=== PATIENT | female | born 1960 | race Caucasian/White ===

== ENCOUNTER → 2017-04-22 | Outpatient (CLI) | payer OTHER | END | disposition home or self-care (01) | LOC: RAD.S 10:50 | DX: Z12.31 Encounter for screening mammogram for malignant neoplasm of breast (principal) ==

== ENCOUNTER 2017-05-13 00:53 | Emergency (ER) | payer OTHER ==
--- NOTE | 2017-05-13 19:09 | ER ---
ADMIT: 05/13/2017 RM/LOC: ER [facility] MR#: [id number] [place], [place] [id number] ALEXANDRA ENCINAS [address] [place] [address] Emergency Room Report SEX: F AGE: 57 : 1960 DATE: 05/13/2017 HISTORY OF PRESENT ILLNESS: The patient is a 57-year-old female with past medical history of hypertension and diabetes, came to the ER with chief complaint of anterior mid chest pain since 2 p.m., the patient states the pain is more like aching and states that recently she had lots of stress in her life. The patient denies any change in the pain with inspiration. There is no radiation of the pain, and the patient denied diaphoresis. Pain was moderate in severity and at the moment is mild. The patient denies any shortness of breath and states recently she has been diagnosed for some pulmonary infection and received treatment for that. The patient denies any fever at home or colorful sputum. PHYSICAL EXAMINATION: VITAL SIGNS: In the ER, the patient was afebrile with temperature of 98, respiratory rate was 16, heart rate was 64, blood pressure is 150/80. GENERAL: The patient was in mild distress and was anxious. HEAD AND NECK: Normal without any bruits on the neck. Trachea is midline. Bilateral equal breath sounds without any crackles. HEART: Normal heart sounds without any murmurs or gallops. ABDOMEN: Soft, nontender, without any pulsating masses. EXTREMITIES: There is no swelling or tenderness in the extremities. Rest of physical examination is noncontributory and normal. EKG was normal sinus rhythm with a rate of 69. Troponin I was negative, and D- dimer was also 0.28. The patient received aspirin in the ER. Followup chest x-ray was negative for any acute changes. The rest of the lab was also noncontributory and negative. The patient was observed, pain was resolved. The patient did not develop any new chest pains or distress. The patient was discharged to home with diagnosis of chest pain, resolved and follow up with the primary doctor, the patient was given return precautions. Garcia Call MD/ earnestine JOB #: [id number] CC: Garcia Call MD, Attending Physician Jessica Almanza MD, Family Physician
== END 2017-05-13 02:35 | disposition home or self-care (01) ==
LOC: ER 00:53
DX: R07.89 Other chest pain (principal); I10 Essential (primary) hypertension; E11.9 Type 2 diabetes mellitus without complications; Z79.84 Long term (current) use of oral hypoglycemic drugs; Z79.899 Other long term (current) drug therapy; Z98.890 Other specified postprocedural states